=== PATIENT | male | born 1940 | race Caucasian/White ===

== ENCOUNTER 2024-02-10 13:08 | Outpatient (RCR) | payer OTHER, SELFPAY | END 2024-02-10 23:59 | disposition home or self-care (01) | LOC: RPT 13:08 | PROVIDERS: ATTENDING PHYSICIAN Family Medicine | DX: R26.2 Difficulty in walking, not elsewhere classified (principal); Z73.6 Limitation of activities due to disability | CPT/HCPCS: 97112; 97161 ==

== ENCOUNTER 2024-03-02 14:17 | Outpatient (RCR) | payer OTHER, SELFPAY | END 2024-03-02 23:59 | disposition home or self-care (01) | LOC: RPT 14:17 | PROVIDERS: ATTENDING PHYSICIAN Family Medicine | DX: R26.2 Difficulty in walking, not elsewhere classified (principal) | CPT/HCPCS: 97110; 97112 ==

== ENCOUNTER 2024-04-06 14:24 | Outpatient (RCR) | payer OTHER, SELFPAY | END 2024-04-06 23:59 | disposition home or self-care (01) | LOC: RPT 14:24 | PROVIDERS: ATTENDING PHYSICIAN Family Medicine | DX: R26.2 Difficulty in walking, not elsewhere classified (principal); M25.562 Pain in left knee; M25.561 Pain in right knee; Z73.6 Limitation of activities due to disability | CPT/HCPCS: 97110; 97112; 97164 ==

== ENCOUNTER 2024-04-13 14:02 | Outpatient (RCR) | payer OTHER, SELFPAY | END 2024-04-14 07:33 | disposition home or self-care (01) | LOC: RPT 14:02 | PROVIDERS: ATTENDING PHYSICIAN Family Medicine | DX: R26.2 Difficulty in walking, not elsewhere classified (principal); M25.562 Pain in left knee; M25.561 Pain in right knee; Z73.6 Limitation of activities due to disability | CPT/HCPCS: 97110 ==

== ENCOUNTER → 2024-05-22 18:17 | Outpatient (REF) | payer OTHER, SELFPAY | LOC: PAVMRI 18:17 | PROVIDERS: ATTENDING PHYSICIAN Orthopaedic Surgery Adult Reconstructive Orthopaedic Surgery; FAMILY PHYSICIAN Family Medicine | DX: M54.50 Low back pain, unspecified (principal) | CPT/HCPCS: 72148 ==

== ENCOUNTER → 2024-09-27 09:13 | Outpatient (REF) | payer OTHER, SELFPAY | LOC: RCS 09:13 | PROVIDERS: ATTENDING PHYSICIAN Internal Medicine; FAMILY PHYSICIAN Family Medicine | DX: I35.0 Nonrheumatic aortic (valve) stenosis (principal) | CPT/HCPCS: 93306 ==

== ENCOUNTER → 2024-10-23 11:41 | Outpatient (REF) | payer OTHER, SELFPAY | LOC: PAVMRI 11:41 | PROVIDERS: ATTENDING PHYSICIAN Student in an Organized Health Care Education/Training Program; FAMILY PHYSICIAN Family Medicine | DX: M54.16 Radiculopathy, lumbar region (principal); M43.16 Spondylolisthesis, lumbar region | CPT/HCPCS: 72158; A9575 ==

== ENCOUNTER → 2024-10-30 14:32 | Outpatient (REF) | payer OTHER, SELFPAY | LOC: PAVMRI 14:32 | PROVIDERS: ATTENDING PHYSICIAN Specialist; FAMILY PHYSICIAN Family Medicine | DX: D41.01 Neoplasm of uncertain behavior of right kidney (principal) | CPT/HCPCS: 74183; A9575 ==

== ENCOUNTER 2024-12-08 14:38 | Emergency (ER) | payer OTHER, SELFPAY ==
[2024-12-08 15:00] VITALS: BP 129/76
[2024-12-08 17:18] VITALS: BP 160/95
[2024-12-08 17:24] VITALS: BMI 26.5
--- NOTE | 2024-12-08 17:38 | ED.GENMED ---
History of Present Illness
General
Chief Complaint: Visual Problem
Source: patient and physician
Time Seen by Provider: 12/08/24 17:22
History of Present Illness
History of Present Illness:
84-year-old male with past medical history of chronic back pain, atrial fibrillation, hypertension, hyperlipidemia, previous GI bleeding, BPH, hypothyroidism presenting to the [place] department [place] [facility] [place] diagnosed
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
symptoms. Patient states that he had started holding his Eliquis as instructed for a epidural injection that he had on Wednesday, had not taken his Eliquis since Wednesday and then resumed the Eliquis either Wednesday evening or Wednesday
(patient not sure when he restarted the Eliquis). He believes on Wednesday afternoon is when the visual disturbance started. Denies any history of similar. No other concerns presently. Social history was negative for cigarettes or tobacco use.
Past History
Past History
ED Past Medical History: Arrthythmia (Atrial fib), CAD, Cancer (questionable renal cell CA), GERD, HTN, Hypercholesterolemia, Valvular disease, Hypothyroidism and Other (Diverticulitis, Hematuria, Renal calculis, H-Pylori, GI bleeding, Kidney
stones, UTI)
ED Past Surgical History: Appendectomy, Cardiac (LINK Recorder, Ablation X 2), Orthopedic (Laminectomy, Partial left shoulder replacement, Spinal fusion, Left hip replacement. ), Urological (TURP) and Other (Hernia repair, )
Social History
Tobacco: Non-smoker
Alcohol: None
Drug: None
Personal:
Living: with family
Employment: Retired
Family History
Family History: Hypertension
Review of Systems
Review of Systems
All Other Systems: ROS reviewed and negative except as documented in HPI and ROS
Phy Exam
Physical Exam
Physical Exam:
GENERAL: Alert , in no apparent distress
EYE: Left pupil 5 mm, right pupil 4. Likely related to recent dilation and ophthalmologic exam. Both pupils reactive to light, EOMI, visual field cut along the medial aspect of the left eye
NECK: Supple
ENT: o/p clr, mmm.
CARDIAC: Regular rate and rhythm .
LUNGS: Clear breath sounds bilaterally, no acute respiratory distress, no wheezes/rales/rhonchi
ABDOMEN: Soft, without focal tenderness, no r/g, no cvat
NEUROLOGICAL: Alert and oriented
SKIN: Warm and dry, skin intact.
MUSCULOSKELETAL: well perfused.
PSYCH: Normal and appropriate interaction.
Scores
Heart Failure Risk
Heart Failure Risk Score: Not Applicable
Heart Score for Chest Pain Patients
STEMI patient?: Not applicable
Withdrawal Assessment of Alcohol
Withdrawal Assessment Completed?: Not applicable
Course
Orders/Labs/Results
Orders:
Orders
12/08/24 17:23
Electrocardiogram (*1) Urgent
Reason for Study: TIA/Stroke
EKG- Treatment ONCE
12/08/24 17:24
CT Head & Neck Angio W/wo IV Urgent
Comment:
Reason For Exam: CRAO left eye
12/08/24 17:41
CRP [C-Reactive Protein] Urgent
Complete Blood Count/With Diff Urgent
Comprehensive Metabolic Panel Urgent
ESR [Erythrocyte Sed Rate] Urgent
Abnormal Lab Results
12/08/24
17:41
RBC 4.58 L 10^6/uL
(4.70-6.10)
RDW 14.8 H %
(11.5-14.5)
ESR 23 H mm/hour
(0-20)
BUN 37 H mg/dl
(9-20)
Glucose 114 H mg/dl
(70-99)
12/08/24 17:41
12/08/24 17:41
Vital Signs
Initial and Last Documented VS:
Initial Vital Signs
Temp Pulse Resp BP Pulse Ox
97.8 F 67 16 129/76 96
12/08/24 15:00 12/08/24 15:00 12/08/24 15:00 12/08/24 15:00 12/08/24 15:00
Last Documented Vital Signs
Temp Pulse Resp BP Pulse Ox
98.1 F 71 21 167/98 96
12/08/24 17:24 12/08/24 19:45 12/08/24 18:00 12/08/24 19:25 12/08/24 15:00
MDM/Problems Addressed
Differential Diagnosis Includes:
I suspect patient likely has central retinal artery occlusion likely to holding his Eliquis for 3 days due to procedure, given lack of headache or pain suspicion for giant cell arteritis is quite low, retinal detachment
MDM/Problems Addressed:
84-year-old male presenting the ER for evaluation of left eye medial vision loss which started 2 to 3 days ago, patient had recently held his Eliquis as part of a planned outpatient procedure, resume this medication on Wednesday evening Wednesday
morning. Currently hemodynamically stable. Sent to the ER by ophthalmology. Will check CTA as if patient has significant stenosis or abnormality on scan may need further intervention however if these studies are largely unremarkable patient may
be able to be discharged home with continuing his Eliquis and further outpatient follow-up as needed. Patient's disposition currently pending
Chronic conditions affecting care: Arrhythmia
Acute Exacerbation and/or Progression of Chronic Illness: Arrhythmia
*Radiology
Radiology exam reviewed: radiology read reviewed
*Pulse Oximetry
Patient hypoxic: no
*Critical Care Note
Total Time (30-74mins, 75-104mins- exclusive of procedures): Not Applicable
Data Reviewed
Review of Other/Old Records Reveals: Records
Source: patient and records
Patient Management
Escalation/DeEscalation of care consider admission/obs:
CT scan shows no acute vascular pathology. There is less than 50% stenosis of proximal left ICA. 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 Given patient is already anticoagulated on Eliquis there would not be any change to his treatment plan. At this time
patient advised to continue taking his Eliquis as prescribed and can continue following up as an outpatient. Discussed return precautions. Both patient and feel comfortable being discharged home.
ED Attending Note
-
Portions of this chart may have been created with voice recognition software.� Occasional wrong word or��sound alike� substitutions may have occurred due to the inherent limitations of voice recognition software.
Discharge Plan
Departure
Patient Disposition: Home (Routine Discharge)
Date of Disposition: 12/08/24
Time of Disposition: 20:37
Patient with high blood pressure during this ER visit?: Yes
Condition: Fair
Discharge Problem:
Acute retinal artery occlusion
Instructions: BLOOD PRESSURE
Prescriptions:
No Action
levothyroxine 125 MCG tablet
125 mcg PO DAILY
finasteride 5 MG tablet
5 mg PO DAILY
rosuvastatin [Crestor] 40 MG tablet
40 mg PO HS
multivitamin with folic acid [Tab-A-Jenn] 1 TABLET tablet
1 tab PO DAILY
esomeprazole magnesium [Nexium] 40 MG capsule,delayed release(DR/EC)
40 mg PO DAILY
tramadol 50 MG tablet
50 - 100 mg PO Q4H PRN (Reason: moderate pain)
allopurinol 300 MG tablet
300 mg PO DAILY
Eliquis 5 MG tablet
5 mg PO BID
hydrochlorothiazide 25 MG tablet
25 mg PO DAILY
ramipril 10 MG capsule
10 mg PO BID
carvedilol 25 mg Tablet
25 mg PO BID
acetaminophen 500 mg Tablet
1,000 mg PO .PRNBID PRN (Reason: pain)
ferrous sulfate 325 mg (65 mg iron) Capsule, Extended Release
325 mg PO DAILY
Referrals:
Maris Mercer MD [Active] -
Leland Najera MD [Family Provider] -
Activity Restrictions/Additional Instructions:
As discussed please follow-up with both your family doctor or your manager infrastructure and neurologist for further reevaluation of your symptoms. Be sure to stay on your anticoagulation and return if any worsening of symptoms
Interventions
Interventions:
*Risk Screen - Suicide Last Done: 12/08/24 15:04
*General Assessment Last Done: 12/08/24 17:23
*Neglect/Abuse Screening Last Done: 12/08/24 15:04
*ED- Fall Risk Assessment Last Done: 12/08/24 17:23
*ED COVID-19 Vaccine History Last Done: 12/08/24 17:23
*Nursing Disposition Last Done: 12/08/24 21:13
ED- Neurological Assessment Last Done: 12/08/24 17:25
ED-EENT Assessment Last Done: 12/08/24 17:25
ED Swallowing Screen Last Done: 12/08/24 17:25
Discharge Date and Time
Discharge Date/Time: 12/08/24 21:13
Print Language: ESTONIAN
[2024-12-08 17:54] LABS: % Basophils 0.3 % (0-2); % Eosinophils 1.3 % (0-6); % Immature Granulocytes 0.3 % (0-0.5); % Lymphocytes 26.1 % (20.5-51.1); % Monocytes 5.1 % (1.7-9.3); % Neutrophils 66.9 % (42.2-75.2); Absolute Eosinophils 0.1 10^3/uL (0-0.7); Absolute Lymphocytes 2.3 10^3/uL (1.2-3.4); Absolute Monocytes 0.4 10^3/uL (0.1-0.6); Absolute Neutrophils 5.8 10^3/uL (1.4-6.5); Hematocrit 39.5 % (39.0-52.0); Hemoglobin 13.4 g/dL (13.0-18.0); Mean Corp Hgb Conc. 33.9 g/dL (33.0-37.0); Mean Corpuscular Hgb 29.3 pg (27.0-31.0); Mean Corpuscular Volume 86.2 fL (80.0-94.0); Mean Platelet Volume 9.8 fL (7.4-10.4); Nucleated Red Blood Cells % 0 % (-); Platelet Count 223 10^3/uL (130-400); Red Blood Cell Count 4.58 10^6/uL (4.70-6.10); Red Cell Dist. Width 14.8 % (11.5-14.5); White Blood Cell Count 8.7 10^3/uL (4.8-10.8)
[2024-12-08 18:02] LABS: Erythrocyte Sed Rate 23 mm/hour (0-20)
[2024-12-08 18:09] LABS: ALT (SGPT) 23 U/L (0-50); AST (SGOT) 26 U/L (17-59); Albumin 4.3 g/dl (3.5-5.0); Alkaline Phosphatase 88 U/L (38-126); Blood Urea Nitrogen 37 mg/dl (9-20); Calcium 9.8 mg/dl (8.4-10.2); Carbon Dioxide 29 mmol/L (22-30); Chloride 101 mmol/L (98-107); Estimated Creatinine Clearance 49 ml/min; Glucose 114 mg/dl (70-99); Potassium 3.9 mmol/L (3.5-5.1); Sodium 140 mmol/L (135-145); Total Bilirubin 0.6 mg/dl (0.2-1.3); eGFR > 60.00
[2024-12-08 19:25] VITALS: BP 167/98
== END 2024-12-08 21:13 | disposition home or self-care (01) ==
LOC: EMR 14:38
PROVIDERS: Physician Assistant Medical; EMERGENCY PHYSICIAN Student in an Organized Health Care Education/Training Program; FAMILY PHYSICIAN Family Medicine
DX: H34.12 Central retinal artery occlusion, left eye (principal); I10 Essential (primary) hypertension; E78.00 Pure hypercholesterolemia, unspecified; I48.91 Unspecified atrial fibrillation; E03.9 Hypothyroidism, unspecified
CPT/HCPCS: 99285; 70496; 70498; 80053; 85025; 85652; 86140; 93005; Q9967

== ENCOUNTER 2025-01-01 07:07 | Day surgery (SDC) | payer OTHER, SELFPAY ==
[2025-01-01] VITALS (10 sets, daily range): BP systolic 110–143; BP diastolic 58–87; BMI 26.4
--- NOTE | 2025-01-01 09:23 | ITS.CL.CATH ---
Last Greaser - Catheterization
Cardiac Catheterization
Procedure Report:
CARDIAC CATHETERIZATION REPORT
Date of Procedure: 01/01/2025
Referring: Panda Garcia M.D.
INDICATION: New T wave inversions on preoperative EKG, limited functional status.
PROCEDURE:
1. Coronary angiography
A total of 42 minutes of procedural/moderate sedation was utilized. An independent medical billing coordinator was present to assist with and help manage the patient's level of consciousness and physiologic status.
ACCESS:
1. 6 Italian right radial artery using a modified Seldinger technique.
CATHETERS:
1. 5 Italian JR4.
2. 5 Italian JL 3.5.
HEMODYNAMIC DATA
Weight (kg): 84.4
AO (s/d/x, mmHg): 135/70/95
LV (s/x mmHg): Not obtained.
LEFT VENTRICULOGRAPHY: Not performed.
CORONARY ANGIOGRAPHY
Dominance: Right.
Left Main: Wide, broad-based, trifurcating vessel. There is no coronary artery disease.
LAD: Normal size vessel giving rise to 2 diagonals before wrapping around the apex. There are minor luminal irregularities in the mid LAD. There is a 30-40% lesion in the ostium of D2. There is significant external calcification with luminal
irregularities in the remainder of the LAD without discrete stenosis.
Ramus: Small, 1 mm vessel.
Circumflex: Large size, nondominant vessel giving rise to 2 obtuse marginals. There is no coronary artery disease.
RCA: Small to medium size, dominant vessel. There is a 40% lesion in the ostium of the vessel.
INTERVENTION(S)
None.
Closure Device: Vascular band.
Radiation (mGy): 452.18
DAP (cm2.Gy): 39.7320
Fluoroscopy time (minutes): 6.3
CONCLUSIONS
1. Right dominant circulation with a 40% lesion in the ostium of the RCA and a 30-40% lesion in the ostium of D2.
2. Moderate to severe aortic valve stenosis by echocardiography.
3. Severe right subclavian tortuosity.
RECOMMENDATIONS:
1. Expectant management after cardiac catheterization via right radial approach.
2. Limited weight bearing on the right wrist for one week.
3. Aortic stenosis workup for possible TAVR.
4. No revascularization indicated prior to total hip arthroplasty.
5. Continue aggressive primary prevention with high-dose, high potency statin.
6. OMT/GDMT as hemodynamics will tolerate.
Copy to: Panda Garcia M.D., Leland Najera M.D.
Cade Perez DO, FACC, FACP
[2025-01-01] MEDS: NSS 1000 IV (10:37)
== END 2025-01-01 12:15 | disposition home or self-care (01) ==
LOC: CATH 07:07
PROVIDERS: ATTENDING PHYSICIAN Internal Medicine Cardiovascular Disease; FAMILY PHYSICIAN Family Medicine; OTHER PHYSICIAN Internal Medicine
DX: I25.10 Atherosclerotic heart disease of native coronary artery without angina pectoris (principal); I48.0 Paroxysmal atrial fibrillation; I35.0 Nonrheumatic aortic (valve) stenosis; I47.10 Supraventricular tachycardia, unspecified; I10 Essential (primary) hypertension; E78.5 Hyperlipidemia, unspecified; E03.9 Hypothyroidism, unspecified; K21.9 Gastro-esophageal reflux disease without esophagitis; Z85.820 Personal history of malignant melanoma of skin; Z86.73 Personal history of transient ischemic attack (TIA), and cerebral infarction without residual deficits; Z79.01 Long term (current) use of anticoagulants; Z79.82 Long term (current) use of aspirin
CPT/HCPCS: 99152; 99153; C1894; 93458; Q9967

== ENCOUNTER → 2025-02-12 08:43 | Outpatient (REF) | payer OTHER, SELFPAY ==
[2025-02-12 11:18] LABS: Blood Urea Nitrogen 33 mg/dl (9-20); Calcium 9.1 mg/dl (8.4-10.2); Carbon Dioxide 29 mmol/L (22-30); Chloride 105 mmol/L (98-107); Glucose 100 mg/dl (70-99); Potassium 3.9 mmol/L (3.5-5.1); Sodium 141 mmol/L (135-145); eGFR > 60.00
== END ==
LOC: REG 08:43
PROVIDERS: ATTENDING PHYSICIAN Nurse Practitioner Acute Care; FAMILY PHYSICIAN Family Medicine
DX: I35.0 Nonrheumatic aortic (valve) stenosis (principal)
CPT/HCPCS: 36415; 80048

== ENCOUNTER → 2025-02-19 09:25 | Outpatient (REF) | payer OTHER, SELFPAY | LOC: RAD 09:25 | PROVIDERS: ATTENDING PHYSICIAN Nurse Practitioner Acute Care; FAMILY PHYSICIAN Family Medicine | DX: I35.0 Nonrheumatic aortic (valve) stenosis (principal) | CPT/HCPCS: 74174; 75572; Q9967 ==

== ENCOUNTER 2025-03-22 09:44 | Inpatient (IN) | payer OTHER, SELFPAY ==
[2025-03-14 12:17] VITALS: BMI 28.5
--- NOTE | 2025-03-14 13:14 | CM ---
Met with and Mrs. Duran in [facility]. He states prior to admission he resides with his spouse in a one story home with one step to enter. He states prior to admission he was independent with ambulation and adls. He sometimes uses a single point
cane due to recent hip surgery. He states he has a single point cane at home. He states he has a prescription plan and uses [facility]. His spouse states she will be home to assist in his care if needed. The discharge plan is to return home
with his spouse and a home visit by the Transitional Care Nurse when medically stable.
We reviewed pre-op and post-op routines. We reviewed the shower instructions. He has the soap, written instructions and the TAVR Educational Booklet. We also reviewed restrictions including lifting and driving restrictions. We discussed a home
visit by the Transitional Care Nurse. He is agreeable to a home visit. The plan is for TAVR on March.
[2025-03-14 13:19] LABS: Hematocrit 38.4 % (39.0-52.0); Hemoglobin 12.5 g/dL (13.0-18.0); Mean Corp Hgb Conc. 32.6 g/dL (33.0-37.0); Mean Corpuscular Volume 89.3 fL (80.0-94.0); Nucleated Red Blood Cells % 0 % (-); Platelet Count 218 10^3/uL (130-400); Red Cell Dist. Width 14.5 % (11.5-14.5)
[2025-03-14 13:25] LABS: Urine Character Cloudy (Clear)
[2025-03-14 13:28] LABS: INR 1.20; PT 15.7 Sec (11.4-14.6)
[2025-03-14 13:34] LABS: ALT (SGPT) 16 U/L (0-50); AST (SGOT) 22 U/L (17-59); Albumin 4.5 g/dl (3.5-5.0); Alkaline Phosphatase 65 U/L (38-126); Blood Urea Nitrogen 40 mg/dl (9-20); Calcium 9.6 mg/dl (8.4-10.2); Carbon Dioxide 29 mmol/L (22-30); Chloride 105 mmol/L (98-107); Estimated Creatinine Clearance 39 ml/min; Glucose 121 mg/dl (70-99); Potassium 3.9 mmol/L (3.5-5.1); Sodium 143 mmol/L (135-145); Total Protein 7.1 g/dl (6.3-8.2); eGFR 50.18
[2025-03-14 14:54] LABS: Urine White Cell Cast 0-2 /LPF
[2025-03-14 14:55] LABS: Urine Red Blood Cell 50-60 /HPF (0-2); Urine White Cell 80-90 /HPF (0-5)
[2025-03-15 07:55] LABS: Glycohemoglobin (HgbA1c) 5.4 % (4.0-5.6)
[2025-03-22] VITALS (18 sets, daily range): BP systolic 125–160; BP diastolic 58–95; BMI 28.5
--- NOTE | 2025-03-22 11:20 | CM ---
Chart reviewed. Patient is in the OR today. Patient is independent of ADLS, lives with his in a 1 [address], [facility], ambulates with a SPC. Plan is for the patient to return home with CT Transitional RN. CM to follow
--- NOTE | 2025-03-22 12:06 | W.CVOR.SURPR ---
CVOR Surgeon Immed Pre Op
-
I have examined this patient prior to performance of the scheduled procedure.
The patient's condition is unchanged from the time of the dictated/written History and
Physical and the patient is able to undergo the scheduled procedure.
TF TAVR + Full Rescue
[2025-03-22 14:14] LABS: ACT-LR - POC 260 Seconds (116-155)
--- NOTE | 2025-03-22 14:23 | ITS.CL.TAVR ---
Lead Handler - TAVR Report
TAVR PRocedure
Procedure Report:
TRANSCATHETER AORTIC VALVE REPLACEMENT REPORT
Date: 03/22/2025
Referring physician: Panda Garcia M.D.
Preop diagnosis: Severe aortic valve stenosis.
Postop diagnosis: Severe aortic valve stenosis.
Procedure: Transcatheter aortic valve replacement (TAVR) using a #23 Renner IRAIDA S3 Ultra THV.
Operators: Cade Perez DO, Anthony Tran, M.D.
Findings: Severely calcified and stenotic aortic valve.
Anesthesia: Conscious sedation was provided by the anesthesia staff.
Estimated blood loss: Negligible.
Complications: None.
Condition: Stable
Procedure:
The patient was brought to the cardiac labor relations teacher after consent and was prepped and draped in standard sterile fashion. Conscious sedation was provided by the anesthesia staff. After a 'Time Out,' bilateral common femoral arteries and the left
common vein were access using a modified Seldinger technique with a micropuncture kit under ultrasound guidance. A 6 Azerbaijani sheath was placed in the left femoral vein. Angiography performed through the micropuncture sheath confirmed satisfactory
arterial placement in the left superficial femoral artery due to an extremely high bifurcation. This SFA stick was intentional and over the femoral head to allow for adequate hemostasis. The micropuncture sheath was replaced with a 6Fr sheath in
the left SFA. Angiography through the micropuncture kit confirmed satisfactory arterial placement in the right common femoral artery. The right MEMORIAL ADVISER was dilated with an 8FR dilator and preclosed with two Perc-Close devices. An 8Fr sheath was
placed in the RCFA. A temporary pacing wire was advanced through the left femoral vein and into the right ventricle. The pacemaker demonstrated good capture and was set to back up. A 5Fr pigtail catheter was advanced through the left femoral
sheath and seated in the right coronary cusp. Angiography confirmed co-planar angles.
An AL-1 catheter was advanced through the 8Fr sheath, the J wire was exchanged for an Amplatz Extra-Stiff wire and the catheter and the 8 Fr sheath was removed. The 14 Fr Renner E-Sheath was inserted over the wire and into the descending aorta.
Heparin 7000 units was given. The IRAIDA S3 was prepared on the back table. Orientation was confirmed by both physicians. The AL-1 catheter was re-advanced through the E-sheath to the level of the ascending aorta. The Extra-Stiff wire was
removed and a soft tip straight wire was advanced through the AL-1. The straight tip wire was used to cross the aortic valve and the catheter was advanced into the left ventricle. The straight wire was removed. Left ventricular pressure was
measured. An Amplatz Extra-Stiff wire with curved proximal end was advanced through the catheter and into the left ventricular apex. The catheter was removed. ACT was checked and confirmed to be > 250 seconds.
The valve was advanced over the Extrastiff wire and into the descending aorta. The balloon was pulled back and the valve was mounted on the balloon. The valve was advanced through the aortic arch and into the aortic valve annulus. The pusher
device was withdrawn to allow for balloon expansion. Low volume aortography confirmed good position of the valve. The valve was deployed during rapid ventricular pacing. Echocardiography and aortography confirmed a good result with mild aortic
valve insufficiency and a 9 mmHg mean gradient. The valve deployment system was removed. The Renner E-Sheath was then removed and hemostasis obtained with the two Perc-Close sutures. Final angiography demonstrated no evidence of ileofemoral
dissection/perforation and good runoff below the common femoral artery. The pacemaker and the pigtail catheter were removed. The left femoral artery sheath was removed using a 6 Azerbaijani Angio-Seal. The left femoral venous sheath was removed and
manual pressure was applied with excellent hemostasis. Protamine 30 mg was administered.
Radiation
Dose (mGy): 257
DAP (cm2.Gy): 24.5
Fluoroscopy time (minutes): 7.2
TAVR Echo Gradient (mmHg): 9
LV (s/x, mmHg): 155/20
TAVR Cath Gradient (mmHg): Not obtained.
Conclusions:
1. Successful placement of #23 Iraida S3 Ultra aortic valve via right transfemoral approach with no acute complications.
2. Transient left bundle branch block.
Cade Perez DO, FACC, FACP
Copy to: Panda Garcia M.D., Leland Najera M.D.
[2025-03-22] MEDS: LEVOPHED 250 IV (14:49)
--- NOTE | 2025-03-22 16:33 | PTCARENOTE ---
Patient received from PACU. Patient is AO x 3. 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 NSR on telemetry, BP 147/66, POX 98% on room air. B/L groin dressing CDI, pedal pulses b/l +1.
HOB flat until 1830, precautions reviewed. Using urinal in bed, call pak in reach
--- NOTE | 2025-03-22 16:45 | W.PN.CT.SURG ---
CT Surgery Operative Note
-
OPERATIVE REPORT
Preoperative Diagnosis: Severe aortic valve stenosis, symptomatic
Postoperative Diagnosis: Same
Procedure(s) Performed: Right trans femoral TAVR with a 23 mm nominal Renner TAVR valve
Date of Procedure: 03/22/2025
Comorbidities:
1. Severe aortic stenosis, symptomatic
2. Atrial fibrillation and flutter
3. Hematuria
4. CAD
5. Gout
6. Hypertension
7. Hyperlipidemia
Cardiac Surgeon: Wallace Au MD, MS
Flame Planer: Cade Perez MD
Anesthesia: Conscious Sedation and Local Analgesia
EBL: 100cc
Products: none
Implant: 23 mm Renner BLAIR TAVR valve, SN: [id number]
Indication(s) for Procedures: 84-year-old male with symptomatic severe aortic stenosis. CT-TAVR protocol revealed acceptable anatomy for TAVR access and implantation.
Start time: 1338hrs
Deployment time: 1403hrs
End time: 1418hrs
Radiation Dose (mGy): 257
DAP (cm2.Gy): 24.5
Fluoroscopy time (minutes): 7.2
Contrast volume (ml): 114
TAVR gradient (mmHg): 9mmHg
Heparin Dose: 7000units
Protamine Dose: 40mg
Final Valve Positionin/10
Findings: Preoperative LVEF was 60% and was 60% following TAVR without inotropic support. Function was overall normal without regional wall motion abnormalities or dyskinesia. The aortic valve was well seated with only trace to may be mild at most
detectable PVL and mean gradient across the new valve was 9mmHg. After deployment, they returned to sinus while on the clinical laboratory science professor table but did have a new LBBB. There was successful placement of 23 mm nominal TAVR valve without acute complications.
Access:
1. Device -right common femoral artery, perclose x 2
2. Pigtail -intentional left SFA stick [+ 6Fr angioseal]
3. Transvenous Pacer -left common femoral vein
Description of Procedure: The patient was taken to the clinical laboratory science professor. Their identity and procedure to be performed were verified and they were positioned supine on the clinical laboratory science professor table. Induction via conscious sedation. The patient was then prepped and
draped from chin to thigh in a sterile fashion. A preoperative time-out was performed with all members of the team present. Arterial and venous access was performed using fluoroscopy and ultrasound guidance with micropuncture and Seldinger
technique. Two perclose devices were used on the device side followed by access to the aorta with a stiff wire to facilitate E-sheath placement. Heparin was given. A stiff straight wire and AL-1 catheter was used to cross the aortic valve. An LVEDP
was measured here and found to be 20 mmHg. The stiff wire was exchanged for an extra stiff coiled tip wire. The valve was prepped and mounted on to the device carrier. An ACT of >250 was achieved. We verified x 3 that the valve was mounted in the
correct orientation with the skirt of the valve directed toward the tip of the device carrier. We advanced the device into the descending thoracic aorta where the valve was them mounted onto the balloon under fluoroscopy. The device was flexed and
advanced over the arch into the root and positioned across the aortic valve. Contrast fluoroscopy was used to visualize the prosthesis across the valve and to guide positioning. A pigtail catheter in the RCC as used as a guide. We aimed to have the
bottom of the device marker at the annular hinge point. The device sheath was pulled back. We performed a quick pre-deployment time out. The pacer was turned on and had capture. Blood pressure fell accordingly, angiography was done to verify the
intended final placement and the valve was deployed with 5 seconds of rapid pacing to nominal volume. The balloon was deflated and the pacer was turned off. We had recovery of vitals. The device carrier was unflexed and positioned back in the
descending thoracic aorta. A transthoracic echocardiogram was performed. The device was removed from the E-Sheath maintaining wire access followed by removal of the E-sheath as we cinched down the perclose devices. There was acceptable hemostasis.
The pigtail was withdrawn into the descending/abdominal and completion aortogram with runoff run-off angiography was performed. There was no stenosis or dissection of bilateral iliofemoral systems. There was acceptable hemostasis of bilateral groins
and manual pressure was held following wire removal. Low dose protamine was administered after checking another ACT.
All instrument, sponge, and needle counts were confirmed to be correct x 2 at the end of the operation. The patient was transferred to the cardiac intensive care unit in stable condition.
I, Dr. Wallace Au, was present, scrubbed for, and performed all critical elements of this procedure.
Wallace Au MD
Cardiothoracic Surgeon
[facility]
This operative dictation was created using the [employer] dictation system. Please excuse any grammatical, typographical, or 'sound alike' errors
[2025-03-22] MEDS: ALTACE 10 MG PO (20:08)
[2025-03-22] MEDS: COREG 25 MG PO (20:09)
[2025-03-22] MEDS: ANCEF 5 IV (20:13)
[2025-03-22] MEDS: FLUSH (NSS) 1 FLUSH IV (20:14)
--- NOTE | 2025-03-22 22:34 | PTCARENOTE ---
Received pt at change of shift resting in bed. SR on tele, HR in the 70's. pt denies any pain or SOB. Right and Left groin sites C.D.I. No bleeding or hematoma noted at this time. pt ambulated in room with rw and assistance of RN. Fall risk
precautions maintained. Encouraged pt to call for assistance ambulating. pt calls appropriately. Call pak within reach.
[2025-03-22] MEDS: CRESTOR 40 MG PO (22:45)
--- NOTE | 2025-03-23 00:43 | W.PN.CT ---
Today's Communication / Plan
-
-pod #1
-no issues overnight
-nsr 60s-70s overnight. No significant nicolás or pauses
-Echo today
-current meds (ASA, Eliquis, Coreg, Crestor, Altace, HCTZ, Protonix, Synthroid, Allopurinol)
-encourage IS, ambulate
-possible d/c
Assessment / Plan
-
- Severe symptomatic aortic valve stenosis- s/p Right trans femoral TAVR with a 23 mm nominal Renner TAVR valve on 03/22/25, pod #1
- After deployment, pt returned to sinus while on the clinical laboratory science professor table but did have a new LBBB.
- Intraop TTE: LVEF 60% pre and post with no regional wma. The aortic valve was well seated with only trace to may be mild at most detectable PVL and mean gradient across the new valve was 9mmHg.
- Paroxysmal atrial fibrillation and flutter- s/p ablation 2015, PVI 2018, ablation 2022 - on Eliquis preop
- Hx Hematuria
- CAD- nonobstructive (cath 01/01/25)
- HTN/HLD
- Hypothyroidism
- Gout
- BPH, s/p TURP x2
- Prostaitis
- Cervical DDD
- Hx abdominal dissection
- Hx renal mass - presumed RCC, s/p ablation 2021
- MINDI
- OA, s/p L SERENA 2021 and R SERENA 2024
Discussed patient care with: Nursing and Care Team
Subjective
-
Date of Service: March 23, 2025
Objective Data
-
PT 15.7 Sec (11.4-14.6) H 03/14/25 12:08
INR 1.20 03/14/25 12:08
Vital Signs
Vital Signs
Temp Pulse Resp BP Pulse Ox
98.4 F 72 18 136/63 98
03/22/25 22:49 03/22/25 22:49 03/22/25 22:49 03/22/25 22:49 03/22/25 22:49
CT Intake/Output/Weight
03/22/25 03/22/25 03/23/25
06:59 18:59 06:59
Intake Total 1480 / 1480
Output Total 450 / 450
Balance 1030 / 1030
SaO2: 98
Physical Exam
-
General: Awake and AOx3
Cardiovascular: Regular rate & rhythm, Murmur (2/6 systolic @ L steranl border) and No Rub
Respiratory: Clear and Decreased Breath Sounds
Incision: Other (groins are cdi, soft, nontender, no hematoma b/l)
Extremities: No Edema (2+ DPs b/l)
Abdomen: soft, nontender, nondistended, + bowel sounds
Data Reviewed
-
Lab Results: Results Reviewed
Medications: Active Meds Reviewed
Chest X-Ray: Report Reviewed and Image Reviewed
ECG: Report Reviewed and Image Reviewed
[2025-03-23] MEDS: TYLENOL 650 MG PO (00:46)
[2025-03-23 02:53] VITALS: BP 138/63
[2025-03-23] MEDS: ULTRAM 50 MG PO ×2 (03:07→08:49)
[2025-03-23 03:20] LABS: Hematocrit 33.4 % (39.0-52.0); Hemoglobin 11.4 g/dL (13.0-18.0); Mean Corp Hgb Conc. 34.1 g/dL (33.0-37.0); Mean Corpuscular Volume 85.2 fL (80.0-94.0); Platelet Count 210 10^3/uL (130-400); Red Cell Dist. Width 14.2 % (11.5-14.5)
[2025-03-23 03:53] LABS: Blood Urea Nitrogen 40 mg/dl (9-20); Calcium 8.9 mg/dl (8.4-10.2); Carbon Dioxide 23 mmol/L (22-30); Chloride 107 mmol/L (98-107); Estimated Creatinine Clearance 46 ml/min; Glucose 108 mg/dl (70-99); Potassium 4.1 mmol/L (3.5-5.1); Sodium 139 mmol/L (135-145); eGFR > 60.00
[2025-03-23 06:00] VITALS: BMI 28.5
[2025-03-23] MEDS: SYNTHROID 125 MCG PO (06:07)
[2025-03-23 07:17] VITALS: BP 142/63
--- NOTE | 2025-03-23 07:44 | W.PN.CD ---
Today's Communication / Plan
-
Echo.
Discharge pending.
Impression / Plan
-
Impression/Plan: 84 y/o male with PAF, HTH, HLD, non-obstrucive CAD and severe admitted for elective TAVR.
#Severe
-Chronic, progressive.
-S/P #23 Renner IRAIDA S3 Ultra TAVR via right transfemoral approach, 03/22/2025.
-Transient LBBB in hoisting laborer, resolved on the floor. No issues on telemetry.
-Access sites are C/D/I.
-Echocardiogram ordered and pending.
-Antithrombotic therapy with apixaban.
#PAF
-Currently in NSR.
-Rate/rhythm control with carvedilol.
-CHADS2-Vasc = 3 (HTN, Age x3).
-Therapeutic anticoagulation with apixaban.
#HTN
-Chronic, stable.
-Resume home antihypertensives.
#HLD
-Chronic, stable.
-Resume rosuvastatin.
#Disposition
-IVU status.
-Full code.
-Discharge pending echo.
Subjective/Interval History:
TAVR yesterday.
Transient LBBB in lab, resolved on the floor.
Feels well.
DATA:
TAVR, 03/22/2025:
Conclusions:
1. Successful placement of #23 Iraida S3 Ultra aortic valve via right transfemoral approach with no acute complications.
2. Transient left bundle branch block.
Physical Exam
Vital Signs/Labs
Vital Signs
Temp Pulse Resp BP Pulse Ox
36.8 C 66 18 138/63 97
03/23/25 07:18 03/23/25 06:15 03/23/25 07:18 03/23/25 02:53 03/23/25 07:18
03/21/25 03/22/25 03/23/25
11:59 11:59 11:59
Actual Weight 85 kg
03/23/25 02:50
03/23/25 02:50
PT 15.7 Sec (11.4-14.6) H 03/14/25 12:08
INR 1.20 03/14/25 12:08
03/14/25
12:08
Abg-A-Psahugxazpf Pept 407
Physical Exam
Constitutional: No acute distress and Comfortable
EENT: Anicteric and Moist mucous membranes
Cardiovascular: Rhythm & rate is regular, Pedal edema is absent, JVD pressure is normal, S1S2 is normal and Murmur/rub/gallop absent
Respiratory: Respiratory effort normal, Lungs clear to auscul., Wheeze Absent, Crackles Absent and Rhonchi Absent
GI: Soft, Distention absent, Flat, Non tender and Normal bowel sounds
Neuro/Psych: AO x 3
Other: Cath Site (Bilateral femoral access sites are C/D/I.)
Data Reviewed
-
Date of Service: March 23, 2025
Medical Decision Making: Reviewed Test Results, Independent Historian Assessment and Test Interpretation
EKG: Tracing Personally Visualized and interpreted and Report Reviewed by me
Echo: Ordered by me
X-Ray/CT/US/MRI/NUC/PET: Image Personally Visualized and interpreted and Report Reviewed by me
Medical Tests (PFT, Pathology etc): Image Personally Visualized and interpreted and Report Reviewed by me
Labs: Labs Reviewed by me
Old Records: Reviewed
--- NOTE | 2025-03-23 07:59 | W.PN.ANS.POP ---
Anesthesia Post Operative
- Anesthesia Post Op Note
Vital Signs Stable-See Nursing Note: Yes
Airway Patent: Yes
Adequate Pain Control: Yes
Change in Mental Status: No
Current Postoperative Nausea & Vomiting: No
Anesthesia Complications: No
General Anesthetic Recall: No
Unplanned Admission: No
Post Op Hydration Adequate: Yes
--- NOTE | 2025-03-23 08:11 | W.DCSUMMARY ---
Discharge Summary
Discharge Data
Date of Admission: 03/22/25
Date of Discharge: 03/23/25
-
Pending Results: No
Hospital Course
Primary care physician: Leland Najera
Outpatient barrel filler: Panda Garcia
Inpatient consultants: [facility]
Procedures:
1. Right TF TAVR (03/22/25)
Primary Diagnosis:
1. Severe aortic stenosis, symptomatic
Secondary Diagnoses:
1. Atrial fibrillation and flutter s/p ablation (2015 & 2022), PVI (2018)
2. Hematuria
3. CAD
4. Gout
5. Hypertension
6. Hyperlipidemia
7. Hypothyroidism
8. BPH s/p TURP x 2
9. osteoarthritis s/p L SERENA (2021) and R SERENA (2024)
10. right renal cell cancer s/p ablation (2021)
HPI: 84-year-old male was electively mated on 03/22/2025 for TAVR due to severe aortic stenosis.
Hospital course: Patient underwent a right trans femoral TAVR #23 mm nominal Renner valve by Drs. Wallace Au and Cade Perez. TTE reported an EF >75%, mild paravalvular leak, and aortic mean gradient of 9 mmHg. Morning chest x-ray without
major abnormality. ECG remains sinus rhythm. Bilateral groin sites intact without bleeding or hematoma. Patient will continue on home Eliquis for history of paroxysmal atrial fibrillation. Transitional ASA discontinued on discharge. Predischarge
TTE reported an EF 75%, trace paravalvular leak, AV 32/17mmHg, mild-mod MR. Patient ambulated independently in halls and is deemed stable for discharge home.
Home medication changes:
none
Discharge Plan
-
Patient Disposition: Home (Routine Discharge)
Discharge Diagnosis/Procedures: TF TAVR
Condition: Good
Diet: Low Fat, Low Cholesterol and 2 Gram Sodium
Activity: As tolerated
Driving Restrictions: No driving for 1 week
Bathing Restrictions: OK to Shower
Others Tests: Your 30-day echocardiogram is scheduled for: April 23, 2025 at 1:00PM at [facility]
Other Services: Cardiac Rehab
Wound Care: No lotions, powders or creams to puncture sites
Specialty Instructions: Weigh Daily- Call MD for wt gain/loss 3 lbs overnight/5 lbs in 1 week
Referrals:
CT Transitional Care Nurse [Outside]
Referral Note: The Cardiothoracic Transitional Care Nurse will call you to set up a visit in 1-2 days.
[facility]. Cardiac Rehab [Outside] - 05/01/25 1:00 pm
Referral Note: Cardiac Rehab Orientation appointment is on 05/01/25 at 1:00 pm
The Cardiac Rehab gym is located on the first floor of the [facility].
Page Solomon NP [Specified Professional Personl, Cardiology] - 04/25/25 11:00 am
Leland Najera MD [Family Provider, Family Practice]
Prescriptions:
New
Eliquis 5 mg tablet
5 mg PO BID Qty: 60 0RF
Continued
levothyroxine 125 MCG tablet
125 mcg PO DAILY
finasteride 5 MG tablet
5 mg PO DAILY
rosuvastatin [Crestor] 40 MG tablet
40 mg PO HS
esomeprazole magnesium [Nexium] 40 MG capsule,delayed release(DR/EC)
40 mg PO DAILY
tramadol 50 MG tablet
50 - 100 mg PO Q4H PRN (Reason: moderate pain)
allopurinol 300 MG tablet
300 mg PO DAILY
Eliquis 5 MG tablet
5 mg PO BID
hydrochlorothiazide 25 MG tablet
25 mg PO DAILY
ramipril 10 MG capsule
10 mg PO BID
carvedilol 25 mg Tablet
25 mg PO BID
acetaminophen 500 mg Tablet
1,000 mg PO Q8HPRN PRN (Reason: pain)
multivitamin Tablet
1 tab PO DAILY
Discontinued
aspirin 81 mg Tablet,Delayed Release (Dr/Ec)
81 mg PO DAILY
Discharge Orders:
Discharge Patient (As Directed); Ordered 03/23/25
Ordered By: Amy Isabel
Care Plan Goals
Care Plan Goals:
Problem: Readiness for enhanced knowledge related to diagnosis and treatment plan
Goal: Understand your diagnosis and treatment plan needs, including medications if applicable.
Instructions: Know your diagnosis, underlying causes and treatment plan options, including medications if applicable. Consult with your health care team to learn about your diagnosis and treatment plan, including medications if applicable.
Discharge Date and Time
Print Language: LUX[place]BOURGISH
[2025-03-23] MEDS: ALTACE 10 MG PO (08:39)
[2025-03-23] MEDS: ORETIC 25 MG PO (08:39)
[2025-03-23] MEDS: PROSCAR 5 MG PO (08:39)
[2025-03-23] MEDS: THERAGRAN 1 TABLET PO (08:39)
[2025-03-23] MEDS: PROTONIX 40 MG PO (08:39)
[2025-03-23] MEDS: ELIQUIS 5 MG PO (08:40)
[2025-03-23] MEDS: ZYLOPRIM 300 MG PO (08:40)
[2025-03-23] MEDS: COREG 25 MG PO (08:40)
--- NOTE | 2025-03-23 10:52 | CM ---
CM following for DC planning needs.
Met w/ patient at bedside.
Pt. feels well. He is hopeful for DC soon.
We reviewed DC plan for home w/ CT Transitional Care RN.
No other needs identified.
Plan- Home w/ CT RN
[2025-03-23 11:08] VITALS: BP 120/54
[2025-03-23 11:14] VITALS: BP 127/59
[2025-03-23 11:22] VITALS: BP 120/54; BP 127/59; PULSE 66; O2SAT 96; O2SAT 98
--- NOTE | 2025-03-23 14:22 | PTCARENOTE ---
Patient discharged to home. Teaching provided, he verbalized understanding. IV and telemetry removed. Patient escorted to [employer] in a wheelchair and assisted to his spouses car
== END 2025-03-23 14:27 | disposition home or self-care (01) | DRG 267 ==
LOC: IVU 09:44
PROVIDERS: Physician Assistant Medical; ADMITTING PHYSICIAN Thoracic Surgery (Cardiothoracic Vascular Surgery); CONSULT PHYSICIAN Internal Medicine Cardiovascular Disease; FAMILY PHYSICIAN Family Medicine
PROC: 02RF38Z Replacement of Aortic Valve with Zooplastic Tissue, Percutaneous Approach (ICD-10-PCS; 2025-03-22)
DX: I35.0 Nonrheumatic aortic (valve) stenosis (principal); I48.92 Unspecified atrial flutter; I48.0 Paroxysmal atrial fibrillation; R31.9 Hematuria, unspecified; I25.10 Atherosclerotic heart disease of native coronary artery without angina pectoris; M10.9 Gout, unspecified; I10 Essential (primary) hypertension; E78.5 Hyperlipidemia, unspecified; I44.7 Left bundle-branch block, unspecified; E03.9 Hypothyroidism, unspecified; M19.90 Unspecified osteoarthritis, unspecified site; M50.30 Other cervical disc degeneration, unspecified cervical region; G47.33 Obstructive sleep apnea (adult) (pediatric); Z85.528 Personal history of other malignant neoplasm of kidney; Z79.02 Long term (current) use of antithrombotics/antiplatelets; Z79.01 Long term (current) use of anticoagulants
CPT/HCPCS: 33361; 36415; 71045; 71046; 80048; 80053; 81003; 81015; 82248; 83036; 83880; 85025; 85027; 85610; 86850; 86900; 86901; 86920; 87070; 87086; 93005; 93308; 93321; 93325; C1760; C1769; C1894; Q9967

== ENCOUNTER → 2025-04-23 12:51 | Outpatient (REF) | payer OTHER, SELFPAY | LOC: RCS 12:51 | PROVIDERS: ATTENDING PHYSICIAN Internal Medicine; FAMILY PHYSICIAN Family Medicine | DX: I35.0 Nonrheumatic aortic (valve) stenosis (principal) | CPT/HCPCS: 93306 ==

== ENCOUNTER 2025-05-11 14:01 | Outpatient (RCR) | payer OTHER, SELFPAY | END 2025-05-11 23:59 | disposition home or self-care (01) | LOC: CRHB 14:01 | PROVIDERS: ATTENDING PHYSICIAN Internal Medicine; FAMILY PHYSICIAN Family Medicine | DX: Z95.4 Presence of other heart-valve replacement (principal) | CPT/HCPCS: G0422; G0423 ==

== ENCOUNTER 2025-06-11 11:52 | Outpatient (RCR) | payer OTHER, SELFPAY | END 2025-06-11 23:59 | disposition home or self-care (01) | LOC: CRHB 11:52 | PROVIDERS: ATTENDING PHYSICIAN Internal Medicine; FAMILY PHYSICIAN Family Medicine | DX: I25.10 Atherosclerotic heart disease of native coronary artery without angina pectoris (principal); Z95.4 Presence of other heart-valve replacement | CPT/HCPCS: G0422; G0423 ==

== ENCOUNTER 2025-06-26 06:48 | Outpatient (RCR) | payer OTHER, SELFPAY | END 2025-06-26 23:59 | disposition home or self-care (01) | LOC: RPT 06:48 | PROVIDERS: ATTENDING PHYSICIAN Student in an Organized Health Care Education/Training Program; FAMILY PHYSICIAN Family Medicine | DX: M48.062 Spinal stenosis, lumbar region with neurogenic claudication (principal); M43.16 Spondylolisthesis, lumbar region; M54.16 Radiculopathy, lumbar region; Z73.6 Limitation of activities due to disability; M62.81 Muscle weakness (generalized); M21.371 Foot drop, right foot; M79.604 Pain in right leg; R26.2 Difficulty in walking, not elsewhere classified | CPT/HCPCS: 97110; 97162 ==

== ENCOUNTER → 2025-07-04 15:00 | Outpatient (REF) | payer OTHER, SELFPAY | LOC: MRI 3T 15:00 | PROVIDERS: ATTENDING PHYSICIAN Student in an Organized Health Care Education/Training Program; FAMILY PHYSICIAN Family Medicine | DX: M54.16 Radiculopathy, lumbar region (principal); M43.16 Spondylolisthesis, lumbar region; M48.062 Spinal stenosis, lumbar region with neurogenic claudication; M21.371 Foot drop, right foot | CPT/HCPCS: 72158; A9575 ==

== ENCOUNTER 2025-07-13 11:38 | Outpatient (RCR) | payer OTHER, SELFPAY | END 2025-07-13 23:59 | disposition home or self-care (01) | LOC: CRHB 11:38 | PROVIDERS: ATTENDING PHYSICIAN Internal Medicine; FAMILY PHYSICIAN Family Medicine | DX: Z95.4 Presence of other heart-valve replacement (principal) | CPT/HCPCS: G0422; G0423 ==

== ENCOUNTER 2025-07-30 11:46 | Outpatient (RCR) | payer OTHER, SELFPAY | END 2025-08-01 08:23 | disposition other institution (70) | LOC: CRHB 11:46 | PROVIDERS: ATTENDING PHYSICIAN Internal Medicine; FAMILY PHYSICIAN Family Medicine | DX: I25.10 Atherosclerotic heart disease of native coronary artery without angina pectoris (principal); Z95.4 Presence of other heart-valve replacement (principal) | CPT/HCPCS: G0422; G0423 ==

== ENCOUNTER 2025-09-11 09:04 | Outpatient (RCR) | payer OTHER, SELFPAY | END 2025-09-12 06:33 | disposition home or self-care (01) | LOC: RPT 09:04 | PROVIDERS: ATTENDING PHYSICIAN Student in an Organized Health Care Education/Training Program; FAMILY PHYSICIAN Family Medicine | DX: M48.062 Spinal stenosis, lumbar region with neurogenic claudication (principal); M43.16 Spondylolisthesis, lumbar region; M54.16 Radiculopathy, lumbar region; Z73.6 Limitation of activities due to disability; M62.81 Muscle weakness (generalized); M21.371 Foot drop, right foot; M79.604 Pain in right leg; R26.2 Difficulty in walking, not elsewhere classified | CPT/HCPCS: 97110 ==